=== PATIENT | male | born 1930 | race Caucasian/White ===

== ENCOUNTER 2016-09-13 17:28 | Emergency (ER) | payer MEDICARE, BC ==
[2016-09-13] MEDS ORDERED: HYDROcodone/APAP 10-325MG 1 EACH TAB PO ONE (18:52)
[2016-09-13] MEDS ORDERED: NAPROXEN 250 MG TAB PO STA (18:52)
--- NOTE | 2016-09-13 18:54 | ED ---
General Adult HPI - General Chief complaint: Back Pain/Injury Stated complaint: Fall,back pain Time Seen by Provider: 09/13/16 18:26 Source: patient, RN notes reviewed, old records reviewed Mode of arrival: wheelchair Limitations: physical limitation - History of Present Illness Initial comments: This is an 86-year-old male the ER for evaluation. Patient's was 88 of for reevaluation regarding back pain, severe back pain that he inherited while falling recently and sustaining lumbar compression fracture. Patient is on pain medication at home lower clattering and significant help. Patient denies any recurrent injuries, no neurological deficits. - Related Data Home Medications Medication Instructions Recorded Confirmed Benazepril [Lotensin] 10 mg PO DAILY 10/22/13 09/13/16 Omeprazole [PriLOSEC] 20 mg PO DAILY 10/22/13 09/13/16 Simvastatin [Zocor] 20 mg PO DAILY 10/22/13 09/13/16 Fluticasone/Salmeterol [Advair 1 puff INHALATION RT-BID 11/21/15 09/13/16 250-50 Diskus] Hydrocodone/Acetaminophen [[place] 1 tab PO TID PRN 09/13/16 09/13/16 7.5-325 Tablet] [place] 450mg 1 tab PO DAILY 09/13/16 09/13/16 rOPINIRole HCL [Requip] 0.25 mg PO HS 09/13/16 09/13/16 Previous Rx's Medication Instructions Recorded Allopurinol [Zyloprim] 300 mg PO DAILY tab 11/24/15 Metoprolol Succinate (ER) [Toprol 25 mg PO DAILY #30 tab 01/23/16 XL] Diazepam [Valium] 5 mg PO HS #30 tab 09/13/16 HYDROcodone/APAP 10-325MG [[place] 1 tab PO Q6H PRN #30 tab 09/13/16 10-325] Naproxen [Naprosyn] 250 mg PO BID #30 tab 09/13/16 Allergies Allergy/AdvReac Type Severity Reaction Status Date / Time acetaminophen [From Tylenol] AdvReac Nausea & Verified 09/13/16 18:50 Vomiting Review of Systems ROS Statement: Those systems with pertinent positive or pertinent negative responses have been documented in the HPI. ROS Other: All systems not noted in ROS Statement are negative. Past Medical History Past Medical History: Asthma, Coronary Artery Disease (CAD), Cancer, COPD, Deep Vein Thrombosis (DVT), GERD/Reflux, Hyperlipidemia, Hypertension, Myocardial Infarction ([place]), Osteoarthritis (OA), Prostate Disorder Additional Past Medical History / Comment(s): pancreatitis (11/2015), gout, cardiomyopathy, Hx of V-Tach , BPH, DVT L leg , luther's esophagus, hiatal hernia, diverticular dx, skin cancer., SURGERY FOR CHOLECYSTECTOMY ON WAS CANCELLED DUE TO BRADYCARDIA. , DAUGHTER DORETHA STATES NO CHANGES TO HEALTH HX SINCE 01/21/16 EXCEPT CHANGE IN MEDICATION BY DR HATFIELD. Last Myocardial Infarction Date:: 1993 History of Any Multi-Drug Resistant Organisms: None Reported Past Surgical History: Heart Catheterization, Hernia Repair, Orthopedic Surgery Additional Past Surgical History / Comment(s): 1993 PTCA, blood clot removed from leg, RIGHT SHOULDER arthroscopic SX, bilateral cataract removal, colonoscopy/EGD, R carpal tunnel release, L inguinal hernia repair, skin cancer removed from nose. Past Anesthesia/Blood Transfusion Reactions: No Reported Reaction Past Psychological History: No Psychological Hx Reported Additional Psychological History / Comment(s): . Smoking Status: Former smoker Past Alcohol Use History: Heavy Additional Past Alcohol Use History / Comment(s): Pt started smoking in the 1940 's and quit in the 1960's. QUIT ALCOHOL 4 YEARS AGO. Past Drug Use History: None Reported - Past Family History Father Family Medical History: No Reported History Additional Family Medical History / Comment(s): Father was healthy and lived to be 87yrs old. Mother Family Medical History: Vascular Disorder Additional Family Medical History / Comment(s): Mother had varicosities. She in her 80's. General Exam Limitations: physical limitation General appearance: alert, in no apparent distress Head exam: Present: atraumatic, normocephalic, normal inspection Eye exam: Present: normal appearance, PERRL, EOMI. Absent: scleral icterus, conjunctival injection, periorbital swelling ENT exam: Present: normal exam, mucous membranes moist Neck exam: Present: normal inspection. Absent: tenderness, meningismus, lymphadenopathy Respiratory exam: Present: normal lung sounds bilaterally. Absent: respiratory distress, wheezes, rales, rhonchi, stridor Cardiovascular Exam: Present: regular rate, normal rhythm, normal heart sounds. Absent: systolic murmur, diastolic murmur, rubs, gallop, clicks GI/Abdominal exam: Present: soft, normal bowel sounds. Absent: distended, tenderness, guarding, rebound, rigid Extremities exam: Present: normal inspection, full ROM, normal capillary refill. Absent: tenderness, pedal edema, joint swelling, calf tenderness Back exam: Present: normal inspection Neurological exam: Present: alert, oriented X3, CN II-XII intact Psychiatric exam: Present: normal affect, normal mood Skin exam: Present: warm, dry, intact, normal color. Absent: rash Course Vital Signs 09/13/16 09/13/16 17:45 19:11 Temperature 97.8 F 98.1 F Pulse Rate 96 78 Respiratory 20 18 Rate Blood Pressure 138/68 142/68 O2 Sat by Pulse 94 L 97 Oximetry - Reevaluation(s) Reevaluation #1: Discussed at length with patient regarding management for back pain. Patient would like to continue to try outpatient management. Patient given adequate pain control the emergency room and is able to ambulate Medical Decision Making - Medical Decision Making 86 mailed the ER status post fall, patient is followed Mary. Compression fractures known, patient has pain control at this time and can be discharged home Disposition Clinical Impression: Lumbar compression fracture Disposition: HOME SELF-CARE Condition: Good Instructions: Acute Low Back Pain (ED), Chronic Back Pain (ED) Prescriptions: Diazepam [Valium] 5 mg PO HS #30 tab HYDROcodone/APAP 10-325MG [[place] 10-325] 1 tab PO Q6H PRN #30 tab PRN Reason: Pain Naproxen [Naprosyn] 250 mg PO BID #30 tab Referrals: Jesu Holman MD [Primary Care Provider] - 1-2 days
[2016-09-13 19:04] VITALS: RESP 18
[2016-09-13 19:12] VITALS: BP 142/68; PULSE 78; TEMP 98.1
== END 2016-09-13 19:17 | disposition home or self-care (01) ==
LOC: EC 17:28
DX: S32.008A Other fracture of unspecified lumbar vertebra, initial encounter for closed fracture (principal); J45.909 Unspecified asthma, uncomplicated; J44.9 Chronic obstructive pulmonary disease, unspecified; K21.9 Gastro-esophageal reflux disease without esophagitis; E78.5 Hyperlipidemia, unspecified; I10 Essential (primary) hypertension; Z87.891 Personal history of nicotine dependence; Z85.828 Personal history of other malignant neoplasm of skin; Z79.51 Long term (current) use of inhaled steroids; Z88.6 Allergy status to analgesic agent; Z79.899 Other long term (current) drug therapy; W19.XXXA Unspecified fall, initial encounter
CPT/HCPCS: 99283

== ENCOUNTER 2018-01-13 05:28 | Observation (INO) | payer MEDICARE, BC ==
[2018-01-13] MEDS ORDERED: HYDROcodone/APAP 10-325MG 1 EACH TAB PO ONE (06:51)
--- NOTE | 2018-01-13 07:51 | ED ---
Lower Extremity Injury HPI - General Source: patient Mode of arrival: EMS Limitations: no limitations - History of Present Illness MD Complaint: foot injury -: hour(s) Injury: Foot: Right, Left Type of Injury: unknown Place: home Severity: moderate Improves With: rest Worsens With: weight bearing Context: fall Associated Symptoms: able to partially bear weight <Anjum Yanes - Last Filed: 01/13/18 07:45> <Liam Valentin - Last Filed: 01/13/18 11:48> <Mo Rubin - Last Filed: 01/13/18 12:12> - General Chief Complaint: Extremity Injury, Lower Stated Complaint: Weakness, pain in feet Time Seen by Provider: 01/13/18 06:01 - History of Present Illness Initial Comments: This patient is an 87-year-old man who presents to be evaluated for bilateral foot pain. The patient states that the pain started this morning. He believes that it may be related to starting physical therapy yesterday. The patient states that the therapist had come and had him walk. The patient also had to squat down using his walker, and at that point he had a fall. The patient does not believe he had injured his feet in the fall. He was having some left knee pain that resolved after the therapist massages knee for a number of minutes. He is not having any knee pain at the moment. (Anjum Yanes) - Related Data Home Medications Medication Instructions Recorded Confirmed Benazepril [Lotensin] 10 mg PO DAILY 10/22/13 01/13/18 Omeprazole [PriLOSEC] 20 mg PO DAILY 10/22/13 01/13/18 Simvastatin [Zocor] 20 mg PO DAILY 10/22/13 01/13/18 Fluticasone/Salmeterol [Advair 1 puff INHALATION RT-BID 11/21/15 01/13/18 250-50 Diskus] Saw [place] 450mg 1 tab PO DAILY 09/13/16 01/13/18 Previous Rx's Medication Instructions Recorded Allopurinol [Zyloprim] 300 mg PO DAILY tab 11/24/15 Metoprolol Succinate (ER) [Toprol 25 mg PO DAILY #30 tab 01/23/16 XL] Allergies Allergy/AdvReac Type Severity Reaction Status Date / Time acetaminophen [From Tylenol] AdvReac Nausea & Verified 01/13/18 08:43 Vomiting Review of Systems ROS Other: All systems not noted in ROS Statement are negative. Constitutional: Denies: fever, weakness Respiratory: Denies: cough, dyspnea Cardiovascular: Denies: palpitations, edema Musculoskeletal: Reports: as per HPI, arthralgia. Denies: back pain, joint swelling, myalgia Neurological: Denies: weakness, numbness <PanchitotonyaAnjum - Last Filed: 01/13/18 07:45> ROS Other: All systems not noted in ROS Statement are negative. <Liam Valentin - Last Filed: 01/13/18 11:48> ROS Other: All systems not noted in ROS Statement are negative. <Mo Rubin - Last Filed: 01/13/18 12:12> ROS Statement: Those systems with pertinent positive or pertinent negative responses have been documented in the HPI. Past Medical History Past Medical History: Asthma, Coronary Artery Disease (CAD), Cancer, COPD, Deep Vein Thrombosis (DVT), GERD/Reflux, Hyperlipidemia, Hypertension, Myocardial Infarction ([place]), Osteoarthritis (OA), Prostate Disorder Additional Past Medical History / Comment(s): pancreatitis (11/2015), gout, cardiomyopathy, Hx of V-Tach , BPH, DVT L leg , ltuher's esophagus, hiatal hernia, diverticular dx, skin cancer., SURGERY FOR CHOLECYSTECTOMY ON WAS CANCELLED DUE TO BRADYCARDIA. , DAUGHTER DORETHA STATES NO CHANGES TO HEALTH HX SINCE 01/21/16 EXCEPT CHANGE IN MEDICATION BY DR HATFIELD. Last Myocardial Infarction Date:: 1993 History of Any Multi-Drug Resistant Organisms: None Reported Past Surgical History: Heart Catheterization, Hernia Repair, Orthopedic Surgery Additional Past Surgical History / Comment(s): 1993 PTCA, blood clot removed from leg, RIGHT SHOULDER arthroscopic SX, bilateral cataract removal, colonoscopy/EGD, R carpal tunnel release, L inguinal hernia repair, skin cancer removed from nose. Past Anesthesia/Blood Transfusion Reactions: No Reported Reaction Past Psychological History: No Psychological Hx Reported Smoking Status: Former smoker Past Alcohol Use History: Occasional Past Drug Use History: None Reported - Past Family History Father Family Medical History: No Reported History Additional Family Medical History / Comment(s): Father was healthy and lived to be 87yrs old. Mother Family Medical History: Vascular Disorder Additional Family Medical History / Comment(s): Mother had varicosities. She in her 80's. <JoaquínAnjum - Last Filed: 01/13/18 07:45> General Exam Limitations: no limitations General appearance: alert, in no apparent distress Respiratory exam: Present: normal lung sounds bilaterally. Absent: respiratory distress, wheezes, rales, rhonchi, stridor Cardiovascular Exam: Present: regular rate, normal rhythm, normal heart sounds. Absent: systolic murmur, diastolic murmur, rubs, gallop Extremities exam: Present: normal inspection, tenderness (Patient is tenderness of the bilateral forefoot at approximately the MTP area. Normal inspection. No obvious deformity.), normal capillary refill. Absent: pedal edema, calf tenderness Back exam: Present: normal inspection. Absent: vertebral tenderness Neurological exam: Present: alert. Absent: motor sensory deficit Skin exam: Present: warm, dry, intact, normal color. Absent: rash <Anjum Yanes - Last Filed: 01/13/18 07:45> Course <Anjum Yanes - Last Filed: 01/13/18 07:45> <Liam Valentin - Last Filed: 01/13/18 11:48> <Mo Rubin - Last Filed: 01/13/18 12:12> Vital Signs 01/13/18 05:37 Temperature 98.5 F Pulse Rate 65 Respiratory 18 Rate Blood Pressure 164/69 O2 Sat by Pulse 95 Oximetry - Reevaluation(s) Reevaluation #1: 01/13/18 11:49 Second triamterene EKG sinus rhythm with marked sinus arrhythmia PACs noted ventricular rate 63. Interval 164 QRS 74 QT since QTC 42/411. Old inferior changes nonspecific T-wave configuration. (Liam Valentin) Medical Decision Making - Lab Data Result diagrams: 01/13/18 11:12 - EKG Data -: EKG Interpreted by Me (Sinus rhythm with sinus arrhythmia with PACs. Ventricular rate 63. Interv) <Liam Valentin - Last Filed: 01/13/18 11:48> - Lab Data Result diagrams: 01/13/18 11:12 01/13/18 11:12 <Mo Rubin - Last Filed: 01/13/18 12:12> - Lab Data Lab Results 01/13/18 01/13/18 01/13/18 Range/Units 11:12 11:12 11:12 WBC 10.0 (3.8-10.6) k/uL RBC 4.61 (4.30-5.90) m/uL Hgb 14.6 (13.0-17.5) gm/dL Hct 44.1 (39.0-53.0) % MCV 95.7 (80.0-100.0) fL MCH 31.7 (25.0-35.0) pg MCHC 33.2 (31.0-37.0) g/dL RDW 14.0 (11.5-15.5) % Plt Count 203 (150-450) k/uL Neutrophils % 67 % Lymphocytes % 21 % Monocytes % 8 % Eosinophils % 3 % Basophils % 1 % Neutrophils # 6.7 (1.3-7.7) k/uL Lymphocytes # 2.1 (1.0-4.8) k/uL Monocytes # 0.8 (0-1.0) k/uL Eosinophils # 0.3 (0-0.7) k/uL Basophils # 0.1 (0-0.2) k/uL Sodium 137 (137-145) mmol/L Potassium 4.9 (3.5-5.1) mmol/L Chloride 100 (98-107) mmol/L Carbon Dioxide 30 (22-30) mmol/L Anion Gap 7 mmol/L BUN 40 H (9-20) mg/dL Creatinine 1.61 H (0.66-1.25) mg/dL Est GFR (CKD-EPI)AfAm 43 (>60 ml/min/1.73 sqM) Est GFR (CKD-EPI)NonAf 38 (>60 ml/min/1.73 sqM) Glucose 95 (74-99) mg/dL Calcium 9.0 (8.4-10.2) mg/dL Magnesium 1.6 (1.6-2.3) mg/dL Total Bilirubin 0.5 (0.2-1.3) mg/dL AST 21 (17-59) U/L ALT 25 (21-72) U/L Alkaline Phosphatase 44 (38-126) U/L Total Creatine Kinase 50 L (55-170) U/L Total Protein 5.7 L (6.3-8.2) g/dL Albumin 3.1 L (3.5-5.0) g/dL Urine Color Urine Appearance (Clear) Urine pH (5.0-8.0) Ur Specific [place] (1.001-1.035) Urine Protein (Negative) Urine Glucose (UA) (Negative) Urine Ketones (Negative) Urine Blood (Negative) Urine Nitrite (Negative) Urine Bilirubin (Negative) Urine Urobilinogen (<2.0) mg/dL Ur Leukocyte Esterase (Negative) 01/13/18 Range/Units 11:12 WBC (3.8-10.6) k/uL RBC (4.30-5.90) m/uL Hgb (13.0-17.5) gm/dL Hct (39.0-53.0) % MCV (80.0-100.0) fL MCH (25.0-35.0) pg MCHC (31.0-37.0) g/dL RDW (11.5-15.5) % Plt Count (150-450) k/uL Neutrophils % % Lymphocytes % % Monocytes % % Eosinophils % % Basophils % % Neutrophils # (1.3-7.7) k/uL Lymphocytes # (1.0-4.8) k/uL Monocytes # (0-1.0) k/uL Eosinophils # (0-0.7) k/uL Basophils # (0-0.2) k/uL Sodium (137-145) mmol/L Potassium (3.5-5.1) mmol/L Chloride (98-107) mmol/L Carbon Dioxide (22-30) mmol/L Anion Gap mmol/L BUN (9-20) mg/dL Creatinine (0.66-1.25) mg/dL Est GFR (CKD-EPI)AfAm (>60 ml/min/1.73 sqM) Est GFR (CKD-EPI)NonAf (>60 ml/min/1.73 sqM) Glucose (74-99) mg/dL Calcium (8.4-10.2) mg/dL Magnesium (1.6-2.3) mg/dL Total Bilirubin (0.2-1.3) mg/dL AST (17-59) U/L ALT (21-72) U/L Alkaline Phosphatase (38-126) U/L Total Creatine Kinase (55-170) U/L Total Protein (6.3-8.2) g/dL Albumin (3.5-5.0) g/dL Urine Color Dark Yellow Urine Appearance Clear (Clear) Urine pH 6.5 (5.0-8.0) Ur Specific [place] 1.015 (1.001-1.035) Urine Protein Negative (Negative) Urine Glucose (UA) Negative (Negative) Urine Ketones Negative (Negative) Urine Blood Negative (Negative) Urine Nitrite Negative (Negative) Urine Bilirubin Negative (Negative) Urine Urobilinogen <2.0 (<2.0) mg/dL Ur Leukocyte Esterase Negative (Negative) Disposition <Anjum Yanes - Last Filed: 01/13/18 07:45> <Liam Valentin - Last Filed: 01/13/18 11:48> Time of Disposition: 12:12 <Mo Rubin - Last Filed: 01/13/18 12:12> Clinical Impression: Failure to thrive, Dehydration, Renal insufficiency, Peripheral neuropathy Disposition: ADMITTED IP TO THIS HOSP Condition: Fair Referrals: Jesu Holman MD [Primary Care Provider] - 1-2 days
--- NOTE | 2018-01-13 08:58 | XR ---
Bilateral feet HISTORY: Pain and swelling 3 views of each foot submitted on a total of 6 images Bone mineralization is reduced which may limit sensitivity. Mild arthropathy changes present, alignme nt is maintained. No fracture or dislocation. Vascular calcifications are present. There are plantar calcaneal spurs. Question some soft tissue swelling. IMPRESSION: Mild osteoarthritis. Soft tissue swelling. Plantar calcaneal spurs. Peripheral vascular o cclusive disease.
[2018-01-13] MEDS ORDERED: HYDROcodone/APAP 7.5-325MG 1 EACH TAB PO ONE (09:06)
[2018-01-13] MEDS ORDERED: SODIUM CHLORIDE 0.9% 500 ML 500 ML IV STA (10:20)
[2018-01-13] MEDS ORDERED: SODIUM CHLORIDE 0.9% 1,000 ML IV STA (10:20)
[2018-01-13 11:27] LABS: Basophils # (A) 0.1 k/uL (0-0.2); Basophils % (A) 1 %; Eosinophils # (A) 0.3 k/uL (0-0.7); Eosinophils % (A) 3 %; HCT 44.1 % (39.0-53.0); HGB 14.6 gm/dL (13.0-17.5); Lymphocytes # (A) 2.1 k/uL (1.0-4.8); Lymphocytes % (A) 21 %; MCH 31.7 pg (25.0-35.0); MCHC 33.2 g/dL (31.0-37.0); MCV 95.7 fL (80.0-100.0); Mean Platelet Volume 7.7; Monocytes # (A) 0.8 k/uL (0-1.0); Monocytes % (A) 8 %; Neutrophils # (A) 6.7 k/uL (1.3-7.7); Neutrophils % (A) 67 %; Platelet Count 203 k/uL (150-450); RBC 4.61 m/uL (4.30-5.90)
[2018-01-13 11:31] LABS: Appearance,Urine Clear (Clear); Bilirubin,Urine Negative (Negative); Blood,Urine Negative (Negative); Color,Urine Dark Yellow; Glucose,Urine (UA) Negative (Negative); Ketones,Urine Negative (Negative); Leukocyte Esterase,Urine Negative (Negative); Nitrite,Urine Negative (Negative); PH, Urine 6.5 (5.0-8.0); Protein,Urine Negative (Negative); Specific Gravity,Urine 1.015 (1.001-1.035); Urobilinogen,Urine <2.0 mg/dL (<2.0)
[2018-01-13 11:48] LABS: Albumin 3.1 g/dL (3.5-5.0); Magnesium 1.6 mg/dL (1.6-2.3); Potassium 4.9 mmol/L (3.5-5.1); Total Bilirubin 0.5 mg/dL (0.2-1.3); Total Protein 5.7 g/dL (6.3-8.2)
--- NOTE | 2018-01-13 12:02 | XR ---
EXAMINATION TYPE: XR chest 2V DATE OF EXAM: 01/13/2018 COMPARISON: 02/20/2015 TECHNIQUE: PA and lateral views submitted. HISTORY: Cough FINDINGS: The lungs are clear and there is no pneumothorax, pleural effusion, or focal pneumonia. Atheroscler otic change of the aorta. No overt failure. Diffuse osteopenia. Arthropathy of the shoulder. Nodule o verlying the right lower lung field likely is related to nipple shadow. IMPRESSION: 1. No acute process.
[2018-01-13] MEDS ORDERED: HYDROcodone/APAP 5-325MG 1 EACH TAB PO PRN (12:12)
[2018-01-13 12:21] LABS: Creatine Kinase MB 4.1 ng/mL (0.0-2.4)
[2018-01-13] MEDS: SODIUM CHLORIDE 0.9% 1,000 ML IV SCH (12:34)
[2018-01-13] MEDS ORDERED: INFLUENZA VACCINE (6 MOS+) 60 MCG/0.5 ML SYRINGE IM ONE (14:25)
--- NOTE | 2018-01-13 15:21 | HP ---
HISTORY AND PHYSICAL ATTENDING PHYSICIAN: Dr. Jesu Holman DATE OF SERVICE: 01/13/18. He is age [age] years old white male, , lives alone. NEW DATA: His height 5 feet 7 inches, weight 58.96 kg, BSA 1.68 m2 and BMI 20.4 kg/m2. HE IS ALLERGY TO ACETAMINOPHEN. The patient presented to the emergency room to Dr. Valentin with the underlying inability to walk and with a history of pain and foot injury and pain by the ER physician , and he could not have a weight bearing with the extremity mainly the foot is bothering him with weakness. HISTORY OF PRESENT ILLNESS: The patient is an 87-year-old white male presented to be evaluated with bilateral foot pain and patient stated that the pain started this morning and they believed that it may be related to his physical therapy yesterday and the patient stated that the therapist had come and had him to walk with the walker and the patient also had to squat down using his walker and at that point he had fall and the patient does not believe that he had injured any of the feet and he was having some knee pain which was resolved after the therapist massaged the knee for a number of minutes. Otherwise, he had no other pain history. He had history of multiple medical problems and he had history of gouty attack. History of asthma and COPD. He only smoked for 10 years as he stated and he had a past history of coronary artery disease. He had history of cancer, COPD, deep venous thrombosis, GERD disease with blood, hyperlipidemia, hypertension, and myocardial infarction and osteoarthritis and prostate disorder. He had admission and history of pancreatitis in 11/2015, gouty and cardiomyopathy. He had laparoscopic cholecystectomy. He had cardiac arrhythmia with ventricular tachycardia and benign prostatic hypertrophy. Lozano's esophagus, hiatal hernia, and diverticular disease. Skin cancer. He had surgery for cholecystectomy and 01/23/2016. He has one daughter, Natasha. He has been seen by Cardiology, Dr. Salinas. [place] was in 1993 and he had history of hernia repair, orthopedic surgery and also he had in 1993 PTCA and he had a blood clot removed from the right leg as well as he had a shoulder arthroscopy and bilateral cataract removal, colonoscopy and EGD. He had a right carpal tunnel release and left inguinal hernia repair and skin cancer was removed from the nose. He is a former smoker. He has no report of anesthesia reaction. FAMILY HISTORY: He has 1 daughter and his father was healthy and lived until age of 87. Family history of vascular disorder. His mother had varicosities and age of 50. REVIEWING OF THE SYSTEM:: Neuropsychiatry was negative and he was doing fairly well. He had dentures upper and lower. He had history of asthma in the past and smoked only for 10 years. He currently denied any chest pain, but he appeared to be wheezing when he talk in to me at this time with underlying COPD. The heart was the cardiovascular: He had no angina, no chest pain. The abdomen was no nausea, vomiting, or hematemesis or melena or hematochezia. : No dysuria or hematuria. Musculoskeletal: Inability to walk with elderly and could not able to walk on the floor at home and he lives alone and probably he may need a penitentiary until his legs are improving. PHYSICAL EXAMINATION: On currently physical examination found that his temperature 98.5 and pulse rate 65, respiratory rate 18, blood pressure was 164/69 with the underlying hypertension uncontrolled. PHYSICAL EXAM: The head was normocephalic, atraumatic. The pupil's were equal, reactive. Conjunctivae was pink. Sclerae was nonicteric. He had dentures upper and lower. Uvula midline. No facial asymmetry. Neck was no bruits and trachea midline. No lump, no masses. The chest has expiratory wheezes bilateral. Chest x-ray was negative on admission. His heart PMI in the 5th intercostal space outside midclavicular line with underlying cardiomegaly. He has been in sinus rhythm on the EKG with sinus arrhythmia and rate of 63 per minute, nonspecific ST wave. On the result here on the abdomen was soft, nontender, positive bowel sounds. No organ enlargement and the extremities he has significant right foot swelling, hot with the pathognomonic of the right foot is warm to touch and erythematous and hot, could not put his feet on the floor and that is clinically acute gouty attack which precipitated with the therapy could be the associated and dehydration with the BUN and creatinine is elevated 40 and BUN and creatinine 1.6. The pulses in the feet is intact and in comparison, the right foot and the left foot is much difference and I did talk to the his nurse and we show her the current finding with the acute gouty arthropathy of the right foot with a pathognomonic of the 1st metatarsophalangeal joint as well as swelling. ASSESSMENT: 1. Acute gouty arthropathy of the right foot. 2. Underlying problem with walking disability and with the use of walker could be associated with neuropathy. 3. Dehydration. 4. Hypertension with probably consideration of hypertensive nephrosclerosis and/ or benign hypertension. 5.Cellulitis of Rt foot considerd. 6.Walking disorder neuropathy ,consult with neurology Madi Molina for evaluation and [place] PLAN: At this time we are starting him on the steroids. We will try to avoid more discomfort from aspirate. We are not going to aspirate the joints. We started empirically with the steroid IV as well as colchicine as well as continue with the Allopurinol for now and meanwhile hydration with IV fluids at 75 mL/h and starting antibiotic and IV piggyback as well as continue evaluation of neuropathy as well with a consultation with Dr. Ramírez, the neurologist. Further treatment depends on the condition. Also , I did order DVT prophylaxis with heparin. We will hold, with the his creatinine mildly elevation, we will decrease the allopurinol to 100 only. Will obtain labs tomorrow. Start IV antibiotic Rocephine 1 gm qd . MMODL / IJN: [id number] / RAFAELA
[2018-01-13] MEDS: COLCHICINE 0.6 MG EACH PO SCH ×2 (15:55→20:56)
[2018-01-13] MEDS: LISINOPRIL 10 MG TAB PO SCH (15:55)
--- NOTE | 2018-01-13 17:58 | US ---
EXAMINATION TYPE: US kidneys/renal and bladder DATE OF EXAM: 01/13/2018 COMPARISON: US 2015, CT 2013 CLINICAL HISTORY: ckd and gout. CKD, exam done portable. EXAM MEASUREMENTS: Right Kidney: 7.2 x 2.8 x 3.2 cm Left Kidney: 9.2 x 5.3 x 5.2 cm Right Kidney: small in size, cortical thinning Left Kidney: no hydronephrosis or masses seen Bladder: wnl Bilateral Jets seen: no IMPRESSION: There is right-sided renal cortical atrophy. No hydronephrosis. We could not demonstrate ureteral jet s in the urinary bladder. No evidence of a renal mass. Right renal atrophy is similar to old ultrasou nd exam of 11/22/2015.
[2018-01-13] MEDS: HEPARIN SODIUM,PORCINE 5,000 UNIT/ML 1 ML VIAL SQ SCH (18:13)
[2018-01-13] MEDS: methylPREDNISolone SOD SUCCI 125 MG/2 ML VIAL IV SCH (20:03)
[2018-01-13] MEDS: IPRATROPIUM-ALBUTEROL 3 ML NEB INHALATION SCH ×2 (21:17→21:24)
[2018-01-13] MEDS: SYMBICORT 80-4.5 MCG INHALER INHALATION SCH (21:24)
--- NOTE | 2018-01-13 21:51 | P.CNNES ---
History of Present Illness Consult date: 01/13/18 History of Present Illness: The patient is an 87-year-old right-handed white male states that he's been having trouble walking for the last 3 years. He was recently going to physical therapy and apparently was doing some task with squatting and he fell down and presented to the hospital because of this fall. He states he's had weakness of the legs for 3 years. He's been using a cane for 2 years and for the last 1-1/ 2 years she's been using a walker. He also complains of numbness and tingling in his feet for the past several years. He states he's fallen a few times due to weakness in the legs. Also with one of these falls he fractured his back which occurred about 1-1/2 years ago. 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 He states this difficulty with his legs and the numbness in his feet has stopped him from working. The patient denies any significant back pain. He denies any bowel or bladder just function. Review of Systems Constitutional: Denies chills, Denies fever Eyes: denies blurred vision, denies pain Ears, nose, mouth and throat: Denies headache, Denies sore throat Cardiovascular: Denies chest pain, Denies shortness of breath Respiratory: Denies cough Musculoskeletal: Denies myalgias Integumentary: Denies pruritus, Denies rash Neurological: Denies numbness, Denies weakness Psychiatric: Denies anxiety, Denies depression Past Medical History Past Medical History: Asthma, Coronary Artery Disease (CAD), Cancer, COPD, Deep Vein Thrombosis (DVT), GERD/Reflux, Hyperlipidemia, Hypertension, Myocardial Infarction (MT), Osteoarthritis (OA), Prostate Disorder Additional Past Medical History / Comment(s): Cardiomyopathy, bradycardia, Vtach , DVT L leg surgically removed, pancreatitis several times prior to cholecystectomy, luther's esophagus, hiatal hernia, diverticular disease, gout bilateral feet, arthritis in multiple joints, BPH. Last Myocardial Infarction Date:: 1993 History of Any Multi-Drug Resistant Organisms: None Reported Past Surgical History: Heart Catheterization, Hernia Repair, Orthopedic Surgery Additional Past Surgical History / Comment(s): 1993 PTCA, blood clot removed from L leg, RIGHT SHOULDER arthroscopic SX, bilateral cataract removal, colonoscopy/EGD, R carpal tunnel release, L inguinal hernia repair, skin cancer removed from nose. Past Anesthesia/Blood Transfusion Reactions: No Reported Reaction Smoking Status: Former smoker - Past Family History Father Family Medical History: No Reported History Additional Family Medical History / Comment(s): Father was healthy and lived to be 87yrs old. Mother Family Medical History: Vascular Disorder Additional Family Medical History / Comment(s): Mother had varicosities. She in her 80's. Medications and Allergies Home Medications Medication Instructions Recorded Confirmed Type Benazepril [Lotensin] 10 mg PO DAILY 10/22/13 01/13/18 History Omeprazole [PriLOSEC] 20 mg PO DAILY 10/22/13 01/13/18 History Simvastatin [Zocor] 20 mg PO DAILY 10/22/13 01/13/18 History Fluticasone/Salmeterol [Advair 1 puff INHALATION RT-BID 11/21/15 01/13/18 History 250-50 Diskus] Allopurinol [Zyloprim] 300 mg PO DAILY tab 11/24/15 01/13/18 Rx Metoprolol Succinate (ER) [Toprol 25 mg PO DAILY #30 tab 01/23/16 01/13/18 Rx XL] [place] 450mg 1 tab PO DAILY 09/13/16 01/13/18 History Allergies Allergy/AdvReac Type Severity Reaction Status Date / Time acetaminophen [From Tylenol] AdvReac Nausea & Verified 01/13/18 08:43 Vomiting Physical Examination - Vital Signs Vital Signs: Vital Signs Temp Pulse Pulse Resp BP BP Pulse Ox 01/13/18 21:38 77 01/13/18 21:28 97.7 F 79 13 143/63 94 L 01/13/18 21:27 77 01/13/18 12:43 69 18 135/61 93 L 01/13/18 05:37 98.5 F 65 18 164/69 95 Intake and Output 01/13/18 01/13/18 01/13/18 06:59 14:59 22:59 Other: Weight 58.967 kg - Constitutional General appearance: average body habitus - EENT EENT: PERRL, hearing intact, vision intact - Respiratory Respiratory: lungs clear - Cardiovascular Cardiovascular: regular rate, normal S1, normal S2 - Neurologic Neurologic examination: Mental status: He was awake alert and oriented 3. His speech is fluent. There is no a aphasia or dysarthria. Cranial nerves II through XII are grossly intact next Motor examination was 4+ over 5 throughout sensory examination showed hyperesthesia on both feet Deep tendon reflexes were trace in the lower extremities X Gait was not tested Results - Laboratory Findings CBC and BMP: 01/13/18 11:12 01/13/18 11:12 Abnormal Lab Findings: Abnormal Labs 01/13/18 01/13/18 11:12 11:12 BUN 40 H Creatinine 1.61 H Total Creatine Kinase 50 L CK-MB (CK-2) 4.1 H Total Protein 5.7 L Albumin 3.1 L Assessment and Plan (1) Peripheral neuropathy Current Visit: Yes Status: Chronic SNOMED Code(s): 037315018 (2) History of fall Current Visit: Yes Status: Acute SNOMED Code(s): 412804124 (3) Failure to thrive Current Visit: Yes Status: Acute SNOMED Code(s): 77552304 (4) Dehydration Current Visit: Yes Status: Acute SNOMED Code(s): 99737935 Plan: The patient is an 87-year-old man who presents to the hospital with history of fall. He has had come chronic complaints of weakness in his legs and numbness and tingling in his feet. He has progressed from using a cane for 2 years to a walker. He has had frequent falls and has fractured his spine with one of his falls His clinical picture presents as possible polyneuropathy. We will check B12 level and fasting glucose. He will need an EMG to be done as an outpatient. Recommend PT and OT
[2018-01-14] MEDS: methylPREDNISolone SOD SUCCI 125 MG/2 ML VIAL IV SCH ×3 (00:07→21:35)
[2018-01-14] MEDS: HEPARIN SODIUM,PORCINE 5,000 UNIT/ML 1 ML VIAL SQ SCH ×3 (00:07→15:56)
[2018-01-14] MEDS: SODIUM CHLORIDE 0.9% 1,000 ML IV SCH ×2 (00:12→15:58)
[2018-01-14 07:43] LABS: Basophils % (A) 0 %; Eosinophils % (A) 0 %; HCT 42.3 % (39.0-53.0); HGB 13.5 gm/dL (13.0-17.5); Lymphocytes # (A) 0.8 k/uL (1.0-4.8); Lymphocytes % (A) 10 %; MCHC 31.8 g/dL (31.0-37.0); MCV 100.6 fL (80.0-100.0); Macrocytosis Slight; Mean Platelet Volume 6.9; Monocytes # (A) 0.1 k/uL (0-1.0); Monocytes % (A) 1 %; Neutrophils # (A) 7.4 k/uL (1.3-7.7); Neutrophils % (A) 88 %; Platelet Count 211 k/uL (150-450); RBC 4.21 m/uL (4.30-5.90); WBC 8.4 k/uL (3.8-10.6)
[2018-01-14 08:06] LABS: Calcium 8.5 mg/dL (8.4-10.2); Potassium 5.1 mmol/L (3.5-5.1); Uric Acid 4.4 mg/dL (3.5-8.5)
[2018-01-14] MEDS ORDERED: ALLOPURINOL 300 MG TAB PO SCH (09:00)
[2018-01-14] MEDS: SYMBICORT 80-4.5 MCG INHALER INHALATION SCH ×2 (09:03→20:53)
[2018-01-14] MEDS: IPRATROPIUM-ALBUTEROL 3 ML NEB INHALATION SCH ×4 (09:04→20:54)
[2018-01-14] MEDS: ALLOPURINOL 100 MG TAB PO SCH (09:19)
[2018-01-14] MEDS: METOPROLOL SUCCINATE (ER) 25 MG TAB.ER.24H PO SCH (09:19)
[2018-01-14] MEDS: ATORVASTATIN 10 MG TAB PO SCH (09:19)
[2018-01-14] MEDS: LISINOPRIL 10 MG TAB PO SCH (09:19)
[2018-01-14] MEDS: PANTOPRAZOLE 40 MG TABLET PO SCH (09:19)
[2018-01-14] MEDS: COLCHICINE 0.6 MG EACH PO SCH ×2 (09:20→21:35)
--- NOTE | 2018-01-14 14:11 | PN ---
PROGRESS NOTE This is a patient of Dr. Holman. DATE OF SERVICE: 01/14/2018 He is an 87 years old, white male. NEW DATA: He is a FULL CODE. Height 5 feet 7 inches, weight 58.967 kg, BSA 1.68 square meter, BMI 20.4 kg/square meter. ALLERGY: Allergy to ACETAMINOPHEN. The patient is seen today, evaluated, discussed with his nurse as well as the patient and today he stated that his right foot was able to put it on the ground, fiery red with the underlying acute gouty attack and questionable cellulitis as well as bruises of the instep and the toes, that was highly also suggested and patient started on the steroid for the gout attack, acute flare-up as well as he has a history of gouty attack in the past, added to the antibiotic if the superficial cellulitis is present. Meanwhile today the foot pulses are intact and it appeared to be fading away and discussed the history and patient stated that when he fell down on his toes got underneath and could be trauma as well added to his complicated problem. On the visitation of the consult of Dr. Bianca Sanford, the neurologist, and she stated that his conclusion that the patient had peripheral neuropathy and it is chronic as well as he has history of frequent falls as well as failure to thrive and dehydration. Currently, also she stated her impression due to the fact that the patient's frequency of falls and complain of weakness in the legs and numbness and tingling in his feet, the patient has no diabetes and he started to use the walker 2 years ago and he had frequent fall and fracture in his spine, the picture as she stated polyneuropathy and she is checking on his vitamin B12 level and she will do EMG and physical and occupational therapy. On today's exam, he was conscious, alert, oriented. His vital signs indicating temperature 97, the heart rate 77, respiratory rate 17, blood pressure 117/40, and mean is 65 and oxygen saturation 99%. The patient has history of asthma as well and he started on steroid Solu-Medrol for the 2 purposes of acute gout as well as the asthma with wheezing bilateral. We also decreased his allopurinol to 100 mg due to chronic kidney disease. We did ultrasound of the kidney and bladder and ureter and found that his right kidney is a small size with cortical thinning and the left kidney is no hydronephrosis and the bladder within normal limits. With the impression right sided renal cortical atrophy and we could not demonstrate any ureteral jets in the urinary bladder. No evidence of renal mass. With the conclusion, right renal atrophy, which explained the chronic kidney disease with elevated creatinine. On the laboratory today, it showed that white count is 8.5 with hemoglobin 13.5 and MCV mildly elevated 100.6. His electrolytes within normal limit with the potassium 5.1, and carbon dioxide 23, and his BUN is 36 and creatinine 1.54, which is mildly improved. His blood sugar today this morning was 159, however, prior to that was 95. His calcium is normal 8.5. The patient has a TSH this morning and found to be normal 2.930 and his protein 5.7 yesterday and albumin 3.1 yesterday. His urinalysis was essentially negative, which was done yesterday. PHYSICAL EXAMINATION: On the physical examination today, the patient is conscious, alert, oriented. He has dentures upper and lower. Neck was supple. Chest was clear with the no wheezes today. No rhonchi. The heart was regular sinus rhythm. The abdomen was soft, positive bowel sounds. Extremities, he has the right foot with the acute gouty attack as well as bruises and with trauma as well as possible cellulitis. However, no leukocytosis and his uric acid is normal at 4.4. Vitamin B12 level was ordered by Dr. Bianca Ramírez. The occupational and physical therapy was also consulted and the assessment as mentioned above with the underlying COPD, asthma, and we decreased his IV steroid to 60 mg q.12 hours. Tomorrow it will be discontinued and as he is able to put his feet now on the ground and we are using the colchicine as well twice a day with the future plan for visiting nurse is unclear. The patient is living in assisted living and has rehabilitation there or the daughter has a different request and we will see what is the discussion between the discharge nurse and family. The patient on inhalation therapy on Rocephin once a day and we will continue that until tomorrow. He is on DVT prophylaxis and he has also influenza vaccine and blood pressure is fairly well controlled with the current medication and he has been on TRA inhibitor and the GERD disease, he is taking pantoprazole and the IV fluid and we will be decreasing the IV fluid to 50 mL an hour, with the improvement of the renal function as he was mildly dehydrated at that time. Hopefully tomorrow we will be able to home in a [facility] or assisted living depends on what is his daughter's request. JANELLE / JED: [id number] /
[2018-01-14 21:00] VITALS: RESP 16
[2018-01-15] MEDS: HEPARIN SODIUM,PORCINE 5,000 UNIT/ML 1 ML VIAL SQ SCH ×2 (01:32→07:59)
[2018-01-15] MEDS: SODIUM CHLORIDE 0.9% 1,000 ML IV SCH (05:23)
[2018-01-15] MEDS: SYMBICORT 80-4.5 MCG INHALER INHALATION SCH (07:22)
[2018-01-15] MEDS: IPRATROPIUM-ALBUTEROL 3 ML NEB INHALATION SCH ×2 (07:22→11:31)
[2018-01-15] MEDS: ALLOPURINOL 100 MG TAB PO SCH (07:58)
[2018-01-15] MEDS: methylPREDNISolone SOD SUCCI 125 MG/2 ML VIAL IV SCH (07:58)
[2018-01-15] MEDS: LISINOPRIL 10 MG TAB PO SCH (07:59)
[2018-01-15] MEDS: PANTOPRAZOLE 40 MG TABLET PO SCH (07:59)
[2018-01-15] MEDS: COLCHICINE 0.6 MG EACH PO SCH (07:59)
[2018-01-15] MEDS: METOPROLOL SUCCINATE (ER) 25 MG TAB.ER.24H PO SCH (07:59)
[2018-01-15] MEDS: ATORVASTATIN 10 MG TAB PO SCH (07:59)
[2018-01-15] MEDS ORDERED: CYANOCOBALAMIN 1,000 MCG/ML 1 ML VIAL IM SCH (11:15)
[2018-01-15] MEDS ORDERED: methylPREDNISolone 4 MG TAB TAPER PO SCH (11:45)
[2018-01-15 12:38] VITALS: BP 142/61; PULSE 71; TEMP 97.3
--- NOTE | 2018-01-16 07:58 | DS ---
DISCHARGE SUMMARY He is NO CODE. Height is 5 feet 7 inches. Weight 58.967 kg, BSA 1.68 m2, BMI 20.4 kg/m2. ALLERGY TO ACETAMINOPHEN: DATE OF DISCHARGE: 01/15/2018 FINAL DIAGNOSES: 1. Dehydration. 2. Acute gouty attack of the right foot. 3. Bruises of the right foot with the collection of mild blood under the skin with puffiness of the dorsum of the feet. 4. Renal insufficiency with the presence of ultrasound, small right kidney with the atrophic right kidney. 5. Failure to thrive, is not active. 6. Frequent fall secondary to vitamin D deficiency clinically with the results below 400 and his current vitamin B12 is 229. 7. History of gastroesophageal reflux disease. 8. History of hyperlipidemia. 9. History of hypertension. 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 11.Asthma and chronic obstructive pulmonary disease with the bilateral wheezes of the lung. 12.Chronic kidney disease stage 3. 13.Polyneuropathy. HOSPITAL COURSE: The patient presentation to the emergency room with underlying injury to his lower extremities with weakness secondary to frequent falls as he was getting his physical therapy at home. He lives at home alone with the injury and trauma to the right foot as well as left foot and inability to walk or step on his right foot with also discomfort in the left foot and numbness in both lower extremities. Subsequently patient admitted to the hospital and is started on protocol for colchicine and steroids. As patient admitted to the hospital, found that he has also chronic kidney disease stage 3. We obtained a consultation with the neurologist, Dr. Bianca Ramírez and she stated that he had polyneuropathy and checked his vitamin B12 and found out that the B12 deficiency with the clinically would be expected more than 400 or more. The patient is currently on the labs his vitamin B12 level is 229. As patient in the hospital, we checked his thyroid and was normal. His BUN and creatinine improved with the mild hydration with a creatinine 1.45 on January 14. Meanwhile, we obtained the ultrasound of the bladder and kidney and the ultrasound indicating the right-sided renal cortical atrophy with the presence of the right kidney 7.2 multiplied by 2.8, multiplied by 3.2. However, the left kidney is normal in size. Normal function. With the conclusion of right renal atrophy. As patient treated with the steroid and colchicine as well as allopurinol. Allopurinol has been with the underlying chronic renal disease. The allopurinol was decreased to 100 mg as well as his uric acid was normal. Being normal uric acid does not antagonize diagnosis of acute gouty attack. He had also a chest x-ray and the chest x-ray on the hospitalization was no acute process. However, the patient was clinically wheezing inspiratory and expiratory. We started him on Rocephin as well as the steroid, which did very well and improved significantly. In the ER, they noticed only mild osteoarthritis, plantar calcaneal spur and underlying peripheral vascular occlusive disease. As patient improved, we discussed it with the daughter in detail and the patient will be able to go back home and he going to continue the physical therapy as has been before, and we will be supplementing him with the IM injection of vitamin B12 as well as sublingual vitamin B12 [id number] and he may need vitamin B12 injection IM once a week and he can see Dr. Holman in his office and he can continue with program of vitamin B12 for the vitamin B12 deficiency. However, patient feels better, able to walk in the hallway and able to eat. He has a dentures upper and lower with no choking and he can swallow normally. With these findings with the discussion extensively with daughter, the patient will be discharged home. We will be because of his asthma and if not completely resolved, he needs the inhalation nebulizer machine as well as continue the inhalation DuoNeb q.i.d. as well as he had Medrol Dosepak for 6 days to complete by the time he will be seeing Dr. Holman. No further antibiotic at this time. His urinalysis was negative. MMODL / IJN: [id number] /
== END 2018-01-15 16:42 | disposition home health service (06) ==
LOC: EC 05:28 → 5MS5E 12:13
PROVIDERS: ADMIT Internal Medicine; ATTEND Internal Medicine
DX: E86.0 Dehydration (principal); M10.9 Gout, unspecified; S90.31XA Contusion of right foot, initial encounter; N18.3 Chronic kidney disease, stage 3 (moderate); N27.0 Small kidney, unilateral; R62.7 Adult failure to thrive; E55.9 Vitamin D deficiency, unspecified; R29.6 Repeated falls; K21.9 Gastro-esophageal reflux disease without esophagitis; E78.5 Hyperlipidemia, unspecified; I12.9 Hypertensive chronic kidney disease with stage 1 through stage 4 chronic kidney disease, or unspecified chronic kidney disease; J44.9 Chronic obstructive pulmonary disease, unspecified; G62.9 Polyneuropathy, unspecified; E53.8 Deficiency of other specified B group vitamins; M77.30 Calcaneal spur, unspecified foot; M19.90 Unspecified osteoarthritis, unspecified site; I73.9 Peripheral vascular disease, unspecified; I25.2 Old myocardial infarction; I47.2 Ventricular tachycardia; I42.9 Cardiomyopathy, unspecified; Z91.81 History of falling; I25.10 Atherosclerotic heart disease of native coronary artery without angina pectoris; Z79.899 Other long term (current) drug therapy; Z79.51 Long term (current) use of inhaled steroids; Z88.6 Allergy status to analgesic agent; Z98.61 Coronary angioplasty status; N40.0 Benign prostatic hyperplasia without lower urinary tract symptoms; Z87.891 Personal history of nicotine dependence; Z85.828 Personal history of other malignant neoplasm of skin; Z86.718 Personal history of other venous thrombosis and embolism; Z23 Encounter for immunization
CPT/HCPCS: 99284 ×2; 96361 ×5; 96376 ×2; 96365; 96366; 96372 ×3; 96375; 36415; 94640 ×5; 93005; 97116; 97162; 97166; 83921; 82747; 80053; 80048; 84443; 82607; 82550; 82553; 82746; 83735; 84550; 85025 ×2; 81003; 73630; 71046; 76770; 90686; G0378 ×3; G0008; J3420; J1644 ×3; J2930 ×3; J0696 ×3